=== PATIENT | female | born 2000 | race Caucasian/White ===

== ENCOUNTER 2022-03-22 14:29 | Emergency (ER) | payer OTHER ==
[2022-03-22 15:06] VITALS: BP 136/84; PULSE 102; RESP 16; TEMP 99.3; BMI 28.3
== END 2022-03-22 17:14 | disposition home or self-care (01) ==
LOC: FER 14:29
DX: E86.0 Dehydration (principal); F10.120 Alcohol abuse with intoxication, uncomplicated
CPT/HCPCS: 81003; 84703; 99283-25